=== PATIENT | female | born 1980 | race Caucasian/White ===

== ENCOUNTER 2022-02-25 23:08 | Emergency (ER) | payer BC ==
[2022-02-25] MEDS ORDERED: AMOX-355 PO (23:21)
--- NOTE | 2022-02-25 23:22 | ED Integumentary General ---
General Chief Complaint: Bite-Animal/Human/Insect Stated Complaint: DOG BITE,L INDEX LAC Nursing Triage Note: Pt presents with a dog bite to left index finger that happened around 1999 Source: patient Exam Limitations: no limitations History of Present Illness Date Seen by Provider: Feb 25, 2022 Time Seen by Provider: 23:12 Initial Comments 41-year-old female presents the emergency department today for dog bite to her left index finger. She is unsure when her last tetanus shot was. She states the dog's captain assistant recently so they took the dog in. It is a bulldog. She was playing with it and her hand slipped scraping across its teeth. The dog showed no aggression. She is unclear of its immunization status. No other injuries. Allergies and Home Medications Allergies Coded Allergies: No Known Drug Allergies (Unverified , 02/25/22) Patient Home Medication List Home Medication List Reviewed: Yes Amoxicillin/Potassium Clav (Augmentin 500-125 Tablet) 500 Mg-125 Mg Tablet, 1 EACH PO BID Prescribed by: FRANCISCO BROWN MD on 02/25/22 1443 Review of Systems Review of Systems Constitutional: no symptoms reported EENTM: no symptoms reported Respiratory: no symptoms reported Cardiovascular: no symptoms reported Gastrointestinal: no symptoms reported Genitourinary: no symptoms reported Musculoskeletal: no symptoms reported Skin: other (Laceration left index finger) Psychiatric/Neurological: No Symptoms Reported Endocrine: No Symptoms Reported Hematologic/Lymphatic: No Symptoms Reported Past Arnozmy-Dcinkc-Iaryju Hx Patient Social History Tobacco Use?: No Use of E-Cig and/or Vaping dev: No Substance use?: No Alcohol Use?: No Family Medical History Reviewed Nursing Family Hx No Pertinent Family Hx Physical Exam Vital Signs Vital Signs - First Documented 02/25/22 23:11 Temp 36.4 Pulse 88 Resp 18 B/P (MAP) 191/116 (141) Pulse Ox 98 O2 Delivery Room Air Capillary Refill : Less Than 3 Seconds General Appearance: WD/WN, no apparent distress HEENT: normal ENT inspection, pharynx normal Neck: non-tender, supple Cardiovascular: regular rate, rhythm, no murmur Respiratory: chest non-tender, lungs clear, normal breath sounds Gastrointestinal: normal bowel sounds, non tender, soft Extremities: other (2.5 cm laceration to the lateral aspect of the left index finger. Superficial. No tenderness and normal. Neurovascular and sensory intact.) Skin: other (Laceration as described above) Progress/Results/Core Measures Results/Orders My Orders Orders - FRANCISCO BROWN DO Dipht,Pertuss(Acell),Tet Adult (Boostrix (02/25/22 23:30) Rabies Vaccine Human Dipl Cell (Rabavert (02/25/22 23:30) Amoxicillin/Clavulanate Tablet (Augmenti (02/25/22 23:30) Vital Signs/I&O 02/25/22 23:11 Temp 36.4 Pulse 88 Resp 18 B/P (MAP) 191/116 (141) Pulse Ox 98 O2 Delivery Room Air Blood Pressure Mean: 141 Departure Communication (Admissions) Patient is hemodynamically stable. Wound is quite superficial. To prevent infection, suture at this time. Wound is irrigated copiously. She is given rabies immunization, tetanus shot and first dose of Augmentin here. Augmentin is sent to her pharmacy which he is written for outpatient evaluation on the rabies series. They will continue to monitor the dog for any signs of abnormal behavior. I think that there is a low risk of rabies so we will not provide the immunoglobulin at present. Patient is comfortable agreeable this plan of care. She is discharged in stable condition. Impression Primary Impression: Dog bite Qualified Codes: W54.0XXA - Bitten by dog, initial encounter Disposition: 01 HOME, SELF-CARE Condition: Stable Departure-Patient Inst. Referrals: STEVO GANDHI APRN (PCP/Family) Primary Care Physician Patient Instructions: Animal Bites (DC) Scripts Amoxicillin/Potassium Clav (Augmentin 500-125 Tablet) 500 Mg-125 Mg Tablet 1 EACH PO BID for 10 Days, #20 TAB Prov: FRANCISCO BROWN DO 02/25/22 FRANCISCO BROWN DO Feb 25, 2022 23:22
[2022-02-25] MEDS ORDERED: TETANUS,DIPTH,PERTUSS P/F (BOOSTRIX) 0.5 ML VIAL IM ONE (23:30)
[2022-02-25] MEDS ORDERED: RABIES VACCINE HUMAN DIPL CELL 1 ML/2.5 UNITS SYR IM ONE (23:30)
[2022-02-25] MEDS ORDERED: AUGMENTIN 875 MG TAB (AMOXICILLIN/CLAVULANATE) PO SCH (23:30)
[2022-02-25 23:45] VITALS: BP 191/116
== END 2022-02-25 23:45 | disposition home or self-care (01) ==
LOC: EDUNIT# 23:08 → ER FS 23:10
DX: S61.211A Laceration without foreign body of left index finger without damage to nail, initial encounter (principal); Z23 Encounter for immunization; Z28.310 Unvaccinated for COVID-19; W54.0XXA Bitten by dog, initial encounter
CPT/HCPCS: 90675; 90715

== ENCOUNTER 2022-03-12 13:07 | Outpatient (RCR) | payer BC ==
[2022-02-28 13:10] VITALS: BP 142/78
[2022-03-04 10:30] VITALS: BP 180/120
[~2022-03-12] VITALS: Wt 122.0 kg
[~2022-03-12 13:07] MED LIST: AMOX-355 PO; RABIES VACCINE HUMAN DIPL CELL 1 ML/2.5 UNITS SYR INJ ONE; RABIES VACCINE HUMAN DIPL CELL 1 ML/2.5 UNITS SYR ONE
[2022-03-12 13:28] VITALS: BP 151/112
[2022-03-12] MEDS ORDERED: RABIES VACCINE HUMAN DIPL CELL 1 ML/2.5 UNITS SYR INJ ONE (13:30)
== END 2022-03-12 13:28 | disposition home or self-care (01) ==
LOC: SDC 13:07
PROVIDERS: ATTEND Emergency Medicine
DX: Z23 Encounter for immunization (principal)
CPT/HCPCS: 90675; 96372